=== PATIENT | female | born 1965 | race Caucasian/White ===

== ENCOUNTER 2016-10-16 08:43 | Inpatient (IN) | payer OTHER ==
[2016-10-16] MEDS ORDERED: MORPHINE SULFATE 2 MG/ML SYRINGE IVP STA (08:45)
[2016-10-16] MEDS ORDERED: ATORVASTATIN 80 MG TAB PO STA (08:46)
[2016-10-16] MEDS ORDERED: NITROGLYCERIN-D5W PMX 50 MG in DEXTROSE/WATER 1 250ML.BAG IV ONE (08:47)
[2016-10-16] MEDS ORDERED: HEPARIN SODIUM,PORCINE 5,000 UNIT/ML 1 ML VIAL IV ONE (08:53)
--- NOTE | 2016-10-16 08:53 | ED ---
General Adult HPI - General Stated complaint: STEMI Time Seen by Provider: 10/16/16 08:43 Source: RN notes reviewed - History of Present Illness Initial comments: This is a 51-year-old female who presents emergency Department with chest pain. Patient denies diabetes hypertension and high cholesterol. Patient does states she is a smoker. Patient denied any family history of heart disease. Patient started having chest pain or 5:00 this morning she stated radiated up into her jaw and short of breath also diaphoretic. Patient also is mildly nauseated. Patient called EMS when EMS arrived nitroglycerin was administered it did help her pain from a 10 to a 7 however she continues to have 7 or 8 out of 10 pain currently. Patient denies any recent fever chills or cough patient denies any headache patient denies numbness weakness. Patient denies abdominal pain patient denies nausea vomiting diarrhea. - Related Data Allergies Allergy/AdvReac Type Severity Reaction Status Date / Time naproxen [From Aleve] Allergy Unknown Verified 10/16/16 08:46 Review of Systems ROS Statement: Those systems with pertinent positive or pertinent negative responses have been documented in the HPI. ROS Other: All systems not noted in ROS Statement are negative. General Exam - General Exam Comments Initial Comments: GENERAL: Patient is well-developed and well-nourished. Patient is nontoxic and well- hydrated and is in moderate distress. ENT: Neck is soft and supple. No significant lymphadenopathy is noted. Oropharynx is clear. Moist mucous membranes. Neck has full range of motion without eliciting any pain. EYES: The sclera were anicteric and conjunctiva were pink and moist. Extraocular movements were intact and pupils were equal round and reactive to light. Eyelids were unremarkable. PULMONARY: Unlabored respirations. Good breath sounds bilaterally. No audible rales rhonchi or wheezing was noted. CARDIOVASCULAR: There is a regular rate and rhythm without any murmurs gallops or rubs. ABDOMEN: Soft and nontender with normal bowel sounds. SKIN: Skin is clear with no lesions or rashes and otherwise unremarkable. NEUROLOGIC: Patient is alert and oriented x3. Cranial nerves II through XII are grossly intact. Motor and sensory are also intact. Normal speech, volume and content. Symmetrical smile. MUSCULOSKELETAL: Normal extremities with adequate strength and full range of motion. LYMPHATICS: No significant lymphadenopathy is noted PSYCHIATRIC: Normal psychiatric evaluation. Normal interpersonal interactions appears functionally intact in deals appropriately with others. Course Vital Signs 10/16/16 08:46 Temperature 96.7 F L Pulse Rate 89 Respiratory 18 Rate Blood Pressure 123/69 O2 Sat by Pulse 99 Oximetry Medical Decision Making - Medical Decision Making EKG shows normal sinus rhythm at 96 bpm IL interval is 126 QRS is 124 QT interval 386 QTC is 487. Patient's EKG shows ST segment elevation in leads V2 through the 6 as well as in 1 and aVL. Patient appears to be having acute OK. I started the patient on heparin gave the patient Lipitor started the patient on nitroglycerin drip. Dr. Amos came down to see the patient in the emergency department the patient was taken to the catheterization lab. Critical Care Time Critical Care Time: Yes Total Critical Care Time: 30 Disposition Clinical Impression: ST elevation myocardial infarction (STEMI) Disposition: ADMITTED IP TO THIS HOSP Time of Disposition: 09:02
[2016-10-16 09:02] LABS: Basophils # (A) 0.1 k/uL (0-0.2); Basophils % (A) 1 %; CH 31.2; CHCM 33.2; Eosinophils # (A) 0.3 k/uL (0-0.7); Eosinophils % (A) 2 %; HCT 40.6 % (34.0-46.0); HDW 2.44; HGB 13.2 gm/dL (11.4-16.0); Luc # (Auto) 0.21; Luc % (Auto) 2; Lymphocytes # (A) 1.8 k/uL (1.0-4.8); Lymphocytes % (A) 13 %; MCH 30.7 pg (25.0-35.0); MCHC 32.5 g/dL (31.0-37.0); MCV 94.4 fL (80.0-100.0); Mean Platelet Volume 6.7; Monocytes # (A) 0.6 k/uL (0-1.0); Monocytes % (A) 5 %; Neutrophils # (A) 10.3 k/uL (1.3-7.7); Neutrophils % (A) 78 %; RDW 12.2 % (11.5-15.5); WBC 13.2 k/uL (3.8-10.6); WBC (Perox) 14.09
--- NOTE | 2016-10-16 09:03 | XR ---
EXAMINATION TYPE: XR chest 1V portable DATE OF EXAM: 10/16/2016 8:57 AM COMPARISON: NONE INDICATION: Pain TECHNIQUE: Single frontal view of the chest is obtained. FINDINGS: The heart size is normal. The pulmonary vasculature is normal. The lungs are clear. IMPRESSION: 1. No acute pulmonary process.
[2016-10-16 09:10] LABS: ALT 32 U/L (9-52); AST 28 U/L (14-36); Alkaline Phosphatase 83 U/L (38-126); Anion Gap 14 mmol/L; Blood Urea Nitrogen 14 mg/dL (7-17); Calcium 8.8 mg/dL (8.4-10.2); Carbon Dioxide 19 mmol/L (22-30); Chloride 110 mmol/L (98-107); Glucose 177 mg/dL (74-99); Non-African American GFR(MDRD) >60 (>60 ml/min/1.73 sqM); Potassium 3.8 mmol/L (3.5-5.1); Sodium 143 mmol/L (137-145); Total Bilirubin 0.6 mg/dL (0.2-1.3); Total Protein 6.6 g/dL (6.3-8.2)
[2016-10-16] MEDS ORDERED: SODIUM CHLORIDE 0.9% 500 ML IV ONE (09:15)
[2016-10-16] MEDS ORDERED: diphenhydrAMINE 50 MG/ML 1 ML VIAL ONE (09:17)
--- NOTE | 2016-10-16 09:18 | P.CRDCN ---
History of Present Illness Chief complaint: anterior wall mi History of present illness: Acute anterior wall [place] Right bundle-branch block Plan Coronary angiography and coronary stenting Medical treatment Please see full dictated consult, already done Past Medical History Past Medical History: No Reported History History of Any Multi-Drug Resistant Organisms: None Reported Past Surgical History: No Surgical Hx Reported Smoking Status: Current every day smoker Past Alcohol Use History: Occasional Past Drug Use History: None Reported Medications and Allergies Allergies Allergy/AdvReac Type Severity Reaction Status Date / Time naproxen [From Aleve] Allergy Unknown Verified 10/16/16 08:46 Physical Exam Vitals: Vital Signs Temp Pulse Resp BP Pulse Ox 10/16/16 09:03 89 18 124/72 99 10/16/16 08:46 96.7 F L 89 18 123/69 99 Intake and Output 10/15/16 10/16/16 10/16/16 22:59 06:59 14:59 Other: Weight 56.699 kg Patient Weight 10/17/16 06:59 Weight 56.699 kg Results 10/16/16 08:48 10/16/16 08:48 Cardiac Enzymes 10/16/16 Range/Units 08:48 AST 28 (14-36) U/L CBC 10/16/16 Range/Units 08:48 WBC 13.2 H (3.8-10.6) k/uL RBC 4.30 (3.80-5.40) m/uL Hgb 13.2 (11.4-16.0) gm/dL Hct 40.6 (34.0-46.0) % Plt Count 382 (150-450) k/uL Comprehensive Metabolic Panel 10/16/16 Range/Units 08:48 Sodium 143 (137-145) mmol/L Potassium 3.8 (3.5-5.1) mmol/L Chloride 110 H (98-107) mmol/L Carbon Dioxide 19 L (22-30) mmol/L BUN 14 (7-17) mg/dL Creatinine 0.69 (0.52-1.04) mg/dL Glucose 177 H (74-99) mg/dL Calcium 8.8 (8.4-10.2) mg/dL AST 28 (14-36) U/L ALT 32 (9-52) U/L Alkaline Phosphatase 83 (38-126) U/L Total Protein 6.6 (6.3-8.2) g/dL Albumin 4.1 (3.5-5.0) g/dL Current Medications Generic Name Dose Route Start Last Admin Trade Name Freq PRN Reason Stop Dose Admin Nitroglycerin/Dextrose 50 mg/ 250 mls @ 1.5 mls/hr 10/16/16 08:47 10/16/16 08 :53 IV Solution IV 10/17/16 08:46 5 mcg/min .Q24H ONE 1.5 mls/hr Protocol Administration 5 MCG/MIN Intake and Output 10/15/16 10/16/16 10/16/16 22:59 06:59 14:59 Other: Weight 56.699 kg Patient Weight 10/17/16 06:59 Weight 56.699 kg 10/16/16 08:48 10/16/16 08:48
[2016-10-16] MEDS ORDERED: LIDOCAINE 2% INJ 20 MG/ML SQ ONE (09:19)
[2016-10-16] MEDS ORDERED: diphenhydrAMINE 50 MG/ML 1 ML VIAL IVP ONE (09:20)
[2016-10-16] MEDS ORDERED: BIVALIRUDIN BOLUS 250 MG/50 ML IV ONE (09:26)
[2016-10-16] MEDS ORDERED: BIVALIRUDIN 250 MG in SODIUM CHLORIDE 0.9% 50 ML IV ONE (09:26)
[2016-10-16 09:27] LABS: Prothrombin Time 10.3 sec (9.0-12.0)
[2016-10-16] MEDS ORDERED: HYDROmorphone 2 MG/ML 1 ML SYRINGE ONE (09:27)
[2016-10-16 09:31] LABS: Partial Thromboplastin Time 21.8 sec (22.0-30.0)
[2016-10-16] MEDS ORDERED: PRASUGREL 10 MG TAB ONE (09:33)
[2016-10-16] MEDS ORDERED: HYDROmorphone 2 MG/ML 1 ML SYRINGE IVP ONE (09:33)
[2016-10-16] MEDS ORDERED: niCARdipine Syringe (1,000 mcg/10 mL) INTRACORON ONE ×2 (09:35→09:49)
[2016-10-16] MEDS: niCARdipine 25 MG/10 ML VIAL INTRACORON ONE ×2 (09:35→09:49)
[2016-10-16] MEDS: NITROGLYCERIN 1000MCG/10ML SYRINGE INTRACORON ONE ×3 (09:36→09:58)
[2016-10-16 09:38] LABS: Creatine Kinase MB 7.2 ng/mL (0.0-2.4); Troponin I 0.484 ng/mL (0.000-0.034)
[2016-10-16] MEDS ORDERED: PRASUGREL 10 MG TAB PO ONE (09:38)
--- NOTE | 2016-10-16 09:52 | CONS ---
DATE OF CONSULTATION: This is a 51-year-old female who woke up this morning, went to the bathroom and started complaining of midsternal chest discomfort and nonradiating. This was very uncomfortable. Finally she called EMS and she was brought in by EMS to [facility]. Her 12-lead ECG shows underlying right bundle branch block pattern with ST elevation in V1 through V6, and one in aVL consistent with an extensive anterior wall myocardial infarction. She was a bit nauseous in the morning, but no sweating. No dizziness, lightheadedness. She is short of breath. She was quite uncomfortable. She had severe pain. Yesterday, she had similar pain, but this was of shorter duration and it subsided spontaneously. PAST HISTORY: No history of diabetes, hypertension or dyslipidemia. SURGERIES: No surgeries. ALLERGIES: NAPROSYN. MEDICATIONS: At home, none. REVIEW OF SYSTEMS: No fever, chills, rigors. No cough or expectoration. No nausea, vomiting or diarrhea. No hematuria or dysuria. No strokes or seizures. No skin lesions or musculoskeletal complaints. On examination, her blood pressure was 124/72 mmHg, pulse rate in the 80s, afebrile. Head and neck examination normal. No JVD, thyromegaly, or carotid bruits. Heart sounds are soft but normal. No murmurs or gallops. Breath sounds are normal. No rhonchi. No crackles. Abdomen is soft, nontender. Extremities are warm. No edema IMPRESSION: 1. Acute anterior wall myocardial infarction. Pain began at 5:00 a.m. this morning. I saw her at about 9:00 in the morning in the emergency room. She had it just prior to that 2. Underlying right bundle branch block pattern. 3. History of smoking. 4. She denies any diabetes, hypertension or dyslipidemia and is not on any cardiac medications. She never had any cardiac issues in the past. 5. She had a similar episode yesterday, but the pain was short-lived and came back once again this morning at 5:00 a.m. PLAN: Aspirin, atorvastatin, nitroglycerin, IV heparin and transfer to the optical laboratory technician for coronary angiography. Beta blockers and LEIGHA inhibitors to follow along with antiplatelet agents.
[2016-10-16] MEDS ORDERED: IODIXANOL 320 MG/ML 100 ML INTRAARTER ONE (10:07)
[2016-10-16] MEDS ORDERED: ZOLPIDEM 5 MG TAB PO PRN (10:19)
[2016-10-16] MEDS ORDERED: RX INFO: IV CONTRAST WAS GIVEN 1 EACH MISC MISCELLANE PRN (10:19)
[2016-10-16] MEDS ORDERED: NITROGLYCERIN SL TABS 0.4 MG TAB SUBLINGUAL PRN (10:19)
[2016-10-16] MEDS ORDERED: MAG HYDROX/AL HYDROX/SIMETH 30 ML CUP PO PRN (10:19)
[2016-10-16] MEDS ORDERED: SODIUM CHLORIDE 0.9% 1,000 ML IV SCH (10:30)
[2016-10-16 10:44] LABS: Glucose,Whole Blood 135 mg/dL (75-99)
[2016-10-16] MEDS ORDERED: Potassium Replacement Protocol 1 EACH MISC MISCELLANE PRN (11:52)
[2016-10-16] MEDS ORDERED: POTASSIUM CHLORIDE ER 20 MEQ TAB.ER PO SCH (12:00)
--- NOTE | 2016-10-16 12:20 | P.HPIM ---
History of Present Illness H&P Date: 10/16/16 Chief Complaint: Chest pain This is a 51-year-old female with no significant past medical history of presented to the emergency room with chest pain and discomfort. Patient said that her pain started all of a sudden in the middle of her chest. She rates her pain as 6-7 out of 10 in severity. There was no radiation. It was associated with some nausea as well. Patient denies shortness of breath, diaphoresis, or dizziness. She presented to the emergency room and was found to have an acute ST elevation [place] in the precordial leads. She was evaluated by cardiology and was taken to the [facility]. She underwent successful stent placement to the LAD. She is feeling comfortable right now. She denies any chest pain at this point. She reported that she smokes approximately 5-6 cigarettes per day. Review of Systems Review of system: 14 points review of systems were obtained and were negative except to what were mentioned in the HPI. Past Medical History Past Medical History: No Reported History History of Any Multi-Drug Resistant Organisms: None Reported Past Surgical History: No Surgical Hx Reported Smoking Status: Current every day smoker Past Alcohol Use History: Occasional Past Drug Use History: None Reported Medications and Allergies Home Medications Medication Instructions Recorded Confirmed Type Ibuprofen/Pseudoephedrine HCl 1 tab PO Q8H PRN 10/16/16 10/16/16 History [Advil Cold & Sinus Caplet] Multivitamin/Iron/Folic Acid 1 each PO DAILY 10/16/16 10/16/16 History [Centrum Complete Multivit Tab] Allergies Allergy/AdvReac Type Severity Reaction Status Date / Time naproxen [From Aleve] Allergy Severe Rash/Hives Verified 10/16/16 12:06 Physical Exam Vitals: Vital Signs Temp Pulse Resp BP Pulse Ox 10/16/16 12:15 102 H 21 105/63 100 10/16/16 12:00 94 20 99/67 99 10/16/16 11:45 100 20 112/66 99 10/16/16 11:30 105 H 18 118/70 98 10/16/16 11:15 103 H 18 118/76 99 10/16/16 11:00 97.6 F 99 20 104/65 99 10/16/16 10:45 90 12 106/73 95 10/16/16 10:41 96 Intake and Output 01/10/16/16 10/16/16 22:59 06:59 14:59 Intake Total 320 Balance 320 Intake: IV 320 Other: Weight 56.6 kg Patient Weight 10/17/16 06:59 Weight 56.6 kg General: The patient is awake and alert, in no distress, and does not appear acutely ill. Eye: extra-ocular movements are intact; there is normal conjunctiva bilaterally. . Neck: The neck is supple, there is no tenderness or JVD. Cardiovascular: Normal S1-S2, no S3-S4, no murmurs. Respiratory: Lungs clear to auscultation bilaterally with no wheezes rhonchi or rales. Gastrointestinal: Abdomen is soft, nontender, nondistended, with no organomegaly. . Musculoskeletal: Normal ROM, no tenderness, There is no pedal edema. Neurological: There are no obvious motor or sensory deficits. Speech is normal. Skin: Skin is warm and dry and no rashes or lesions are noted. Results CBC & Chem 7: 10/16/16 08:48 10/16/16 08:48 Labs: Abnormal Lab Results - Last 24 Hours (Table) 10/16/16 Range/Units 10:41 POC Glucose (mg/dL) 135 H (75-99) mg/dL Assessment and Plan Plan: 1. Acute ST elevation [place]: Status post successful stent placement to LAD. Continue dual antiplatelets. Medical management. Cardiology following closely. Appreciate recommendations. 2. Tobacco abuse: counseled to quit. Discussed different strategies. Time spent approximately 5 minutes. Patient is wanting to quit. 3. Leukocytosis: Most likely reactive. We'll repeat CBC in the morning. No evidence of ongoing infection. Today, I reviewed her lab work results and medication list. Continue current regimen. Check fasting lipid profile. Repeat lab work in the morning. Continue ICU care and telemetry monitoring. Patient may be transferred outside the ICU when cleared by cardiology. We will follow up in the morning.
[2016-10-16 12:37] LABS: Cholesterol 143 mg/dL (<200); HDL Cholesterol 43 mg/dL (40-60); Triglycerides 61 mg/dL (<150)
[2016-10-16] MEDS: ONDANSETRON 4 MG/2 ML VIAL IVP PRN ×2 (15:33→23:29)
[2016-10-16] MEDS: ACETAMINOPHEN TAB 500 MG TAB PO PRN ×2 (18:16→23:59)
[2016-10-16] MEDS: METOPROLOL TARTRATE 25 MG TAB PO SCH (20:12)
[2016-10-16] MEDS: ATORVASTATIN 80 MG TAB PO SCH (20:13)
--- NOTE | 2016-10-16 21:24 | CC ---
DATE OF SERVICE: October 16, 2016 PERFORMING PHYSICIAN: Adebayo Juarez M.D., bottoming machine operator. PROCEDURE PERFORMED: 1. Selective left and right coronary angiogram. 2. Successful stenting of the proximal left anterior descending artery using 2.75 x 18 and 2.75 x 12 mm Xience SHWETA with a good angiographic results. 3. Left heart catheterization. 4. Left ventriculography. INDICATION: This is a pleasant 51-year-old female patient who presented to the hospital by ambulance who was brought to the hospital ambulance with acute anterior ST elevation myocardial infarction. She was seen and evaluated by Dr. Colindres who recommended an emergent heart catheterization. Approach: Right common femoral artery. COMPLICATIONS: None. Level of sedation: Moderate. PROCEDURE DESCRIPTION: After obtaining informed consent, the patient was rushed emergently to the cardiac kiln labourer. The right groin was prepped in the usual sterile fashion. Local analgesia was achieved by injecting 2% Xylocaine subcutaneously into the right groin. Right common femoral artery was cannulated using an 18-gauge Cook needle. The wire passed easily, then I placed 6 Afghan sheath in the right common femoral artery. Subsequently, I did selective left coronary angiogram and after that, I did intervene on the LAD. After that, I did selective right coronary angiogram, then left heart catheterization and LV gram using a 6 Afghan pigtail catheter. The selective left coronary angiogram was performed using JL4 guiding catheter. The right coronary angiogram was performed using JR4 diagnostic catheter. Overall the procedure was completed without any complication. SELECTIVE CORONARY ANGIOGRAM: 1. The left main is angiographically normal and bifurcates into the left circumflex and left anterior descending artery. 2. The left circumflex is a large-caliber vessel and nondominant vessel. The proximal circumflex appeared to be normal and gives rises into the first OM branch, which is a large-caliber vessel bifurcates into 2 separate branches and both are angiographically normally. The mid left circumflex is normal and the left circumflex distally gives rises into the second OM branch, which appeared to be normal and after that, the circumflex continues as a small-caliber vessel in the AV groove. 3. Left anterior descending artery is 100% occluded in the proximal portion. 4. The right coronary artery is a moderate to large-caliber vessel and it is a dominant vessel. The right coronary artery is angiographically normal. HEMODYNAMICS: The left ventricular end-diastolic pressure was 13 mmHg, and no gradient was identified across the aortic valve. Left ventriculography was performed in the BARNES projection and using a power injection. The left ventricular systolic function seems to be impaired with an ejection fraction probably between 25% and 30% with anterior and apical akinesia hypokinesia. PCI of the LAD: Anticoagulation was initiated using Angiomax. Subsequently took JL4 guide and the left main was engaged. Whisper wire was used to wire the left anterior descending artery, and to cross the total occlusion in the LAD. Subsequently, I did PTCA ballooning using 2.0 x 12 mm balloon which was inflated under 12 atmospheres for 20 seconds. After that, I deployed 2.75 x 18 mm Xience SHWETA, where the stent was positioned under fluoroscopy guidance, then it was deployed under 14 atmospheres for 20 seconds. The following angiogram showed that the lesion just proximal to the stent looks worse and also looks more hazy. So I decided to cover that with a stent, so I took 2.75 x 12 mm another Xience SHWETA, where the second stent was deployed under fluoroscopy guidance with about 2 mm overlap between the 2 stents. The second stent was deployed under 12 atmospheres for 20 seconds. The following angiogram showed good angiographic results. Without perforation and without dissection. I did also balloon the area of overlap between the 2 stents. CONCLUSION: 1. Acute anterior ST elevation myocardial infarction. 2. 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 3. Successful stenting of the proximal left anterior descending artery using 2.75 x 18 and 2.75 x 12 mm Xience SHWETA with a good angiographic results. 4. There is no other residual coronary artery disease in the left circumflex for the right coronary artery. 5. Severely impaired LV function with an ejection fraction of 25% and 30% with anterior and apical hypokinesia. POSTPROCEDURE MANAGEMENT: 1. Dual antiplatelet therapy. 2. Risk factor modification. 3. Smoking cessation was also discussed with the patient. 4. Obtain an echocardiogram with Doppler to assess the LV function. 5. Follow up with the patient.
--- NOTE | 2016-10-16 21:49 | LTR ---
October 16, 2016 RE: Koki Croft Dear Dr. Melo: Ms. Koki Croft was brought to [facility] with chest discomfort and turned to be an acute anterior ST elevation myocardial infarction. The patient was seen and evaluated by my associate Dr. Colindres who recommended an emergent heart catheterization. I did an emergent heart catheterization on the patient and that showed acute total occlusion of the proximal left anterior descending artery, which was opened and stented with a good angiographic result and without any complication. Thank you for allowing me to participate in her care. Please do not hesitate to call if you have any question or concerns. Sincerely, CHAR RANDALL MD
[2016-10-17] MEDS ORDERED: HYDROmorphone 1 MG/ML 1 ML SYRINGE IM STA (02:33)
[2016-10-17] MEDS ORDERED: HYDROmorphone 1 MG/ML 1 ML SYRINGE IVP STA (02:33)
[2016-10-17 05:09] LABS: Basophils % (A) 0 %; CH 31.5; CHCM 33.7; Eosinophils % (A) 0 %; HCT 39.1 % (34.0-46.0); HDW 2.47; Luc % (Auto) 1; Lymphocytes % (A) 5 %; MCH 31.3 pg (25.0-35.0); MCHC 33.3 g/dL (31.0-37.0); MCV 93.9 fL (80.0-100.0); Mean Platelet Volume 7.3; Monocytes # (A) 1.4 k/uL (0-1.0); Monocytes % (A) 8 %; Neutrophils # (A) 15.5 k/uL (1.3-7.7); Neutrophils % (A) 86 %; RBC 4.17 m/uL (3.80-5.40); RDW 12.6 % (11.5-15.5); WBC 18.1 k/uL (3.8-10.6); WBC (Perox) 18.83
[2016-10-17 05:20] LABS: Anion Gap 10 mmol/L; Blood Urea Nitrogen 14 mg/dL (7-17); Calcium 9.1 mg/dL (8.4-10.2); Carbon Dioxide 22 mmol/L (22-30); Chloride 109 mmol/L (98-107); Glucose 135 mg/dL (74-99); Non-African American GFR(MDRD) >60 (>60 ml/min/1.73 sqM); Phosphorous 3.5 mg/dL (2.5-4.5); Potassium 4.4 mmol/L (3.5-5.1); Sodium 141 mmol/L (137-145)
[2016-10-17] MEDS ORDERED: HEPARIN SODIUM,PORCINE 5,000 UNIT/ML 1 ML VIAL IV ONE (08:29)
[2016-10-17] MEDS: PRASUGREL 10 MG TAB PO SCH (08:40)
[2016-10-17] MEDS: ASPIRIN 325 MG TAB PO SCH (08:40)
[2016-10-17] MEDS: METOPROLOL TARTRATE 25 MG TAB PO SCH ×2 (08:40→20:10)
[2016-10-17 09:04] LABS: INR 1.1 (<1.1); Partial Thromboplastin Time 22.1 sec (22.0-30.0); Prothrombin Time 10.7 sec (9.0-12.0)
--- NOTE | 2016-10-17 09:14 | PN ---
Koki Wilde is a 51-year-old female who presented with an anterior wall AL. She underwent successful stenting of the LAD with a Xience stent. This was a totally occluded LAD secondary to plaque rupture and thrombus formation. There was no other disease in the left circumflex or the right coronary artery and LV function is severely impaired at 25 to 30% with anterior and apical hypokinesis. She is doing well from a cardiac standpoint, she has a vague discomfort in the upper chest which is pleuritic in nature and nonradiating. She denies any dizziness, lightheadedness. No palpitations. VITAL SIGNS: Her blood pressure is between 95 to 105 systolic. Pulse rate is in the 90s to 100s. Sinus rhythm and mild sinus tachycardia. Respirations are normal. Heart sounds S1, S2. S1 is normal. S2 is normal. There is a soft gallop. Breath sounds are normal. No rhonchi. No crackles. ABDOMEN: Soft, nontender. EXTREMITIES: Warm. No edema. A 2-D echocardiogram shows severe LV dysfunction, ejection fraction less than 20%. Very large anterior apical and inferior wall akinesis with likely neurothrombus. Suggest: Start IV heparin, start oral Coumadin 5 mg p.o. daily. Daily PT/INR and I will slowly maximize LEIGHA inhibitors. ( ) is also being added. I anticipate that she will be here through this week.
[2016-10-17] MEDS: SPIRONOLACTONE 25 MG TAB PO SCH (09:29)
[2016-10-17] MEDS: HEPARIN SODIUM,PORCINE/D5W PMX 25,000 UNIT in DEXTROSE/WATER 1 500ML.BAG IV SCH (09:29)
[2016-10-17] MEDS: LISINOPRIL 10 MG TAB PO SCH (09:46)
--- NOTE | 2016-10-17 10:27 | ECHOF ---
Referral Reason:stemi MEASUREMENTS -------- HEIGHT: 152.4 cm WEIGHT: 56.3 kg BP: 91/67 RVIDd: 2.1 cm (< 3.3) IVSd: 1.0 cm (0.6 - 1.1) LVIDd: 3.8 cm (3.9 - 5.3) LVPWd: 1.0 cm (0.6 - 1.1) IVSs: 1.4 cm LVIDs: 2.9 cm LVPWs: 1.2 cm LA Diam: 2.7 cm (2.7 - 3.8) LAESV Index (A-L): 18.87 ml/m Ao Diam: 2.8 cm (2.0 - 3.7) AV Cusp: 1.7 cm (1.5 - 2.6) MV EXCURSION: 18.612 mm (> 18.000) MV EF SLOPE: 150 mm/s (70 - 150) EPSS: 0.5 cm MV E Shahid: 0.73 m/s MV DecT: 152 ms MV A Shahid: 0.77 m/s MV E/A Ratio: 0.95 FINDINGS -------- Sinus rhythm. This was a technically adequate study. The left ventricular size is normal. Left ventricular wall thickness is normal. Overall left ventricular systolic function is severely impaired with, an EF between 20 - 25 %. Mid anterior LV wall motion is hypokinetic. Mid lateral LV wall motion is hypokinetic. Mid inferior LV wall motion is hypokinetic. Mid anteroseptal LV wall motion is hypokinetic. Apical anterior LV wall motion is hypokinetic. Apical lateral LV wall motion is hypokinetic. Apical inferior LV wall motion is hypokinetic. Apical septum LV wall motion is hypokinetic. Only basal inferior wall is nathan. The right ventricle is normal in size and function. The left atrium is normal in size. Normal LA size by volume 22+/-6 ml/m2. The right atrium is normal in size. 1.5mg of Definity was utilized for enhancement of images The aortic valve is trileaflet and appears structurally normal. There is trace mitral regurgitation. The tricuspid valve appears structurally normal. No regurgitation noted The pulmonic valve was not well visualized. Mural thrombus in LV apex The aortic root size is normal. There is no pericardial effusion. CONCLUSIONS -------- 1. Sinus rhythm. 2. Apical anterior LV wall motion is hypokinetic. 3. Apical lateral LV wall motion is hypokinetic. 4. Apical inferior LV wall motion is hypokinetic. 5. Apical septum LV wall motion is hypokinetic. 6. Only basal inferior wall is nathan. 7. The right ventricle is normal in size and function. 8. Normal LA size by volume 22+/-6 ml/m2. 9. The right atrium is normal in size. 10. 1.5mg of Definity was utilized for enhancement of images 11. The aortic valve is trileaflet and appears structurally normal. 12. This was a technically adequate study. 13. There is trace mitral regurgitation. 14. The tricuspid valve appears structurally normal. 15. The pulmonic valve was not well visualized. 16. Mural thrombus in LV apex 17. The aortic root size is normal. 18. There is no pericardial effusion. 19. The left ventricular size is normal. 20. Left ventricular wall thickness is normal. 21. Overall left ventricular systolic function is severely impaired with, an EF between 20 - 25 %. 22. Mid anterior LV wall motion is hypokinetic. 23. Mid lateral LV wall motion is hypokinetic. 24. Mid inferior LV wall motion is hypokinetic. 25. Mid anteroseptal LV wall motion is hypokinetic. DRUG ABUSE PROGRAM COORDINATOR: Alicia Glaser RDCS
[2016-10-17 12:28] LABS: Hemoglobin A1C 5.1 % (4.2-6.1)
--- NOTE | 2016-10-17 12:53 | P.PN ---
Subjective Patient is doing fairly well today. She denies any chest pain or shortness of breath. Objective - Vital Signs Vital signs: Vital Signs Temp 98.2 F 10/17/16 11:15 Pulse 109 H 10/17/16 10:00 Resp 18 10/17/16 11:15 BP 114/73 10/17/16 11:15 Pulse Ox 98 10/17/16 11:15 Intake & Output 10/16/16 10/17/16 10/17/16 18:59 06:59 18:59 Intake Total 1045 275 Output Total 200 300 0 Balance 845 -25 0 Weight 56.6 kg 56.6 kg Intake: IV 320 Intake, IV Titration 475 Amount Sodium Chloride 0.9% 1, 475 000 ml @ 100 mls/hr IV . Q10H RIA Rx#:[id number] Oral 250 275 Output: Urine 300 0 Emesis 200 Other: Voiding Method Toilet # Voids 1 1 - Exam General: The patient is awake and alert, in no distress Eye: there is normal conjunctiva bilaterally. Neck: The neck is supple, there is no JVD. Cardiovascular: Normal S1-S2, no S3-S4, no murmurs. Respiratory: Lungs clear to auscultation bilaterally Gastrointestinal: Abdomen is soft, nontender Musculoskeletal: There is no pedal edema. Neurological:. Speech is normal. Skin: Skin is warm and dry - Labs CBC & Chem 7: 10/17/16 04:40 10/17/16 04:40 Labs: Abnormal Lab Results - Last 24 Hours (Table) 10/17/16 10/17/16 Range/Units 04:40 04:40 WBC 18.1 H (3.8-10.6) k/uL Neutrophils # 15.5 H (1.3-7.7) k/uL Monocytes # 1.4 H (0-1.0) k/uL Chloride 109 H (98-107) mmol/L Glucose 135 H (74-99) mg/dL Assessment and Plan Plan: 1. Acute ST elevation [place]: Status post successful stent placement to LAD. Continue dual antiplatelets. Medical management. Cardiology following closely. Appreciate recommendations. 2. Ischemic cardiomyopathy with systolic heart failure and ejection fraction of 20%: Now compensated. Continue optimal medical management. 3. Intracardiac thrombus noted on echocardiogram of the heart. Currently on anticoagulation with heparin and bridging with Coumadin. Cardiology followed closely. May consider ROWDY 4. Tobacco abuse: counseled to quit during this admission 3. Leukocytosis: Most likely reactive. We'll repeat CBC in the morning. No evidence of ongoing infection. Today, I reviewed her lab work results and medication list. Continue current regimen. Repeat lab work in the morning. We will follow up in the morning.
[2016-10-17] MEDS: WARFARIN 5 MG TAB PO SCH (18:05)
[2016-10-17] MEDS: ATORVASTATIN 80 MG TAB PO SCH (20:10)
[2016-10-18] MEDS: ACETAMINOPHEN TAB 500 MG TAB PO PRN ×2 (00:10→23:05)
[2016-10-18] MEDS: HEPARIN SODIUM,PORCINE 5,000 UNIT/ML 1 ML VIAL IV PRN (04:05)
[2016-10-18 05:20] LABS: Anion Gap 6 mmol/L; Blood Urea Nitrogen 14 mg/dL (7-17); Calcium 8.5 mg/dL (8.4-10.2); Carbon Dioxide 27 mmol/L (22-30); Chloride 110 mmol/L (98-107); Glucose 97 mg/dL (74-99); Non-African American GFR(MDRD) >60 (>60 ml/min/1.73 sqM); Phosphorous 2.1 mg/dL (2.5-4.5); Sodium 143 mmol/L (137-145)
[2016-10-18 05:23] LABS: Basophils % (A) 0 %; CH 31.3; CHCM 33.3; Eosinophils # (A) 0.1 k/uL (0-0.7); Eosinophils % (A) 1 %; HCT 35.3 % (34.0-46.0); HDW 2.39; HGB 11.5 gm/dL (11.4-16.0); Luc # (Auto) 0.14; Luc % (Auto) 2; Lymphocytes % (A) 22 %; MCH 30.8 pg (25.0-35.0); MCHC 32.6 g/dL (31.0-37.0); MCV 94.5 fL (80.0-100.0); Mean Platelet Volume 6.7; Monocytes # (A) 0.6 k/uL (0-1.0); Monocytes % (A) 7 %; Neutrophils # (A) 6.2 k/uL (1.3-7.7); Neutrophils % (A) 69 %; RBC 3.73 m/uL (3.80-5.40); RDW 12.3 % (11.5-15.5); WBC 9.1 k/uL (3.8-10.6); WBC (Perox) 9.71
[2016-10-18] MEDS: PRASUGREL 10 MG TAB PO SCH (08:18)
[2016-10-18] MEDS: ASPIRIN 325 MG TAB PO SCH (08:18)
[2016-10-18] MEDS: METOPROLOL TARTRATE 25 MG TAB PO SCH ×2 (09:21→21:08)
[2016-10-18 09:22] VITALS: BMI 24.5
[2016-10-18 10:43] LABS: INR 1.1 (<1.1); Partial Thromboplastin Time 62.4 sec (22.0-30.0); Prothrombin Time 11.3 sec (9.0-12.0)
[2016-10-18] MEDS: SPIRONOLACTONE 25 MG TAB PO SCH ×2 (10:45→21:53)
--- NOTE | 2016-10-18 12:01 | P.PN ---
Subjective Patient is doing fairly well today. She denies any chest pain or shortness of breath. Objective - Vital Signs Vital signs: Vital Signs Temp 97.5 F L 10/18/16 08:13 Pulse 102 H 10/18/16 08:13 Resp 22 10/18/16 08:13 BP 90/62 10/18/16 10:00 Pulse Ox 98 10/18/16 08:13 Intake & Output 10/17/16 10/18/16 10/18/16 18:59 06:59 18:59 Intake Total 277.241 969.234 120 Output Total 0 0 200 Balance 277.241 969.234 -80 Weight 57.1 kg 57.1 kg Intake: IV 160 200 120 0.9 160 200 120 Intake, IV Titration 117.241 169.234 Amount Heparin Sodium,Porcine/ 117.241 169.234 D5w Pmx 25,000 unit In Dextrose/Water 1 500ml. bag @ 12 UNITS/KG/HR 13. 58 mls/hr IV .Q24H RIA Rx #:[id number] Oral 600 Output: Urine 0 0 200 Other: Voiding Method Toilet Toilet # Voids 1 1 # Bowel Movements 1 - Exam General: The patient is awake and alert, in no distress Eye: there is normal conjunctiva bilaterally. Neck: The neck is supple, there is no JVD. Cardiovascular: Normal S1-S2, no S3-S4, no murmurs. Respiratory: Lungs clear to auscultation bilaterally Gastrointestinal: Abdomen is soft, nontender Musculoskeletal: There is no pedal edema. Neurological:. Speech is normal. Skin: Skin is warm and dry - Labs CBC & Chem 7: 10/18/16 04:54 10/18/16 04:54 Labs: Abnormal Lab Results - Last 24 Hours (Table) 10/17/16 10/18/16 10/18/16 Range/Units 16:17 00:14 04:54 RBC (3.80-5.40) m/uL APTT 36.1 H 35.4 H (22.0-30.0) sec Chloride 110 H (98-107) mmol/L Phosphorus 2.1 L (2.5-4.5) mg/dL 10/18/16 10/18/16 Range/Units 04:54 09:35 RBC 3.73 L (3.80-5.40) m/uL APTT 62.4 H (22.0-30.0) sec Chloride (98-107) mmol/L Phosphorus (2.5-4.5) mg/dL Assessment and Plan Plan: 1. Acute ST elevation [place]: Status post successful stent placement to LAD. Continue dual antiplatelets. Medical management. Cardiology following closely. Appreciate recommendations. 2. Ischemic cardiomyopathy with systolic heart failure and ejection fraction of 20%: Now compensated. Continue optimal medical management. 3. Intracardiac thrombus noted on echocardiogram of the heart. Currently on anticoagulation with heparin and bridging with Coumadin. Cardiology followed closely. May consider ROWDY 4. Tobacco abuse: counseled to quit during this admission 3. Leukocytosis: Now resolved. Most likely reactive. We'll repeat CBC in the morning. No evidence of ongoing infection. Today, I reviewed her lab work results and medication list. Continue current regimen. Repeat lab work in the morning. We will follow up in the morning.
[2016-10-18] MEDS: HEPARIN SODIUM,PORCINE/D5W PMX 25,000 UNIT in DEXTROSE/WATER 1 500ML.BAG IV SCH (14:43)
[2016-10-18] MEDS: LISINOPRIL 10 MG TAB PO SCH ×2 (14:50→21:52)
[2016-10-18] MEDS: ATORVASTATIN 80 MG TAB PO SCH (21:08)
[2016-10-18] MEDS: WARFARIN 5 MG TAB PO SCH (21:09)
--- NOTE | 2016-10-18 21:11 | PN ---
Koki Croft is doing well. She is sitting up comfortably in bed. No chest discomfort. No shortness of breath. No orthopnea, PND. Her blood pressure is around 90 mmHg, but she is completely asymptomatic. She is not dizzy or lightheaded. She does not have any chest discomfort. No JVD. No thyromegaly. Breath sounds are normal. Heart sounds: There is a soft gallop noted. Abdomen is soft, nontender. Extremities are warm. No edema. IMPRESSION: 1. Anterior wall myocardial infarction. 2. Severe left ventricular dysfunction, ejection fraction less than 5% to 10%. 3. Likely intramural thrombus in the left ventricle, currently on IV heparin and started her on Coumadin 5 mg p.o. daily. 4. History of smoking. SUGGEST: Continue LEIGHA inhibitors, beta blockers and spironolactone. She is completely asymptomatic and tolerating this blood pressure. I will ambulate her in the hallways and prior to discharge, a LifeVest will be ordered for her. She will be discharged only after her INR is greater than 2.
[2016-10-19 04:16] LABS: Basophils # (A) 0.1 k/uL (0-0.2); Basophils % (A) 1 %; CH 31.5; CHCM 34.2; Eosinophils # (A) 0.2 k/uL (0-0.7); Eosinophils % (A) 2 %; HCT 35.9 % (34.0-46.0); HDW 2.48; HGB 11.9 gm/dL (11.4-16.0); Luc # (Auto) 0.13; Luc % (Auto) 2; Lymphocytes # (A) 1.9 k/uL (1.0-4.8); Lymphocytes % (A) 23 %; MCH 30.7 pg (25.0-35.0); MCHC 33.2 g/dL (31.0-37.0); MCV 92.6 fL (80.0-100.0); Mean Platelet Volume 7.8; Monocytes # (A) 0.7 k/uL (0-1.0); Monocytes % (A) 8 %; Neutrophils # (A) 5.6 k/uL (1.3-7.7); Neutrophils % (A) 65 %; RBC 3.87 m/uL (3.80-5.40); RDW 12.3 % (11.5-15.5); WBC 8.6 k/uL (3.8-10.6); WBC (Perox) 8.98
[2016-10-19 04:26] LABS: INR 1.1 (<1.1); Partial Thromboplastin Time 43.3 sec (22.0-30.0); Prothrombin Time 11.1 sec (9.0-12.0)
[2016-10-19 04:55] LABS: Anion Gap 8 mmol/L; Blood Urea Nitrogen 13 mg/dL (7-17); Calcium 8.8 mg/dL (8.4-10.2); Carbon Dioxide 25 mmol/L (22-30); Chloride 111 mmol/L (98-107); Glucose 92 mg/dL (74-99); Magnesium 1.9 mg/dL (1.6-2.3); Non-African American GFR(MDRD) >60 (>60 ml/min/1.73 sqM); Phosphorous 3.4 mg/dL (2.5-4.5); Potassium 4.3 mmol/L (3.5-5.1); Sodium 144 mmol/L (137-145)
[2016-10-19] MEDS: HEPARIN SODIUM,PORCINE 5,000 UNIT/ML 1 ML VIAL IV PRN (05:08)
[2016-10-19] MEDS ORDERED: Magnesium Replacement Protocol 1 EACH MISC MISCELLANE PRN (05:11)
[2016-10-19] MEDS: MAGNESIUM SULFATE-D5W PMX 1 GM in DEXTROSE/WATER 1 100ML.BAG IVPB SCH ×2 (05:59→07:00)
[2016-10-19] MEDS: METOPROLOL TARTRATE 25 MG TAB PO SCH ×2 (08:48→20:00)
[2016-10-19] MEDS: PRASUGREL 10 MG TAB PO SCH (08:48)
[2016-10-19] MEDS: ASPIRIN 325 MG TAB PO SCH (08:48)
--- NOTE | 2016-10-19 11:35 | US ---
EXAMINATION TYPE: US extremity nonvasc mass LT DATE OF EXAM: 10/19/2016 11:25 AM COMPARISON: NONE CLINICAL HISTORY: questionable hematoma . Bruise seen today on patients left thigh, no known injury, patient is on thinners. Findings: Soft tissue inflammation seen with probable resolving hematoma. No obvious fluid collectio n seen. IMPRESSION: As above
[2016-10-19] MEDS: HEPARIN SODIUM,PORCINE/D5W PMX 25,000 UNIT in DEXTROSE/WATER 1 500ML.BAG IV SCH (11:39)
[2016-10-19] MEDS: SPIRONOLACTONE 25 MG TAB PO SCH (11:40)
--- NOTE | 2016-10-19 11:52 | P.PN ---
Subjective Patient is doing well today. She noticed a lump with a bruise on her left eye this morning. She does not recall any trauma or fall Objective - Vital Signs Vital signs: Vital Signs Temp 98.2 F 10/19/16 08:41 Pulse 83 10/19/16 08:41 Resp 15 10/19/16 08:41 BP 93/50 10/19/16 08:41 Pulse Ox 97 10/19/16 08:41 Intake & Output 10/18/16 10/19/16 10/19/16 18:59 06:59 18:59 Intake Total 453.525 493.668 227.537 Output Total 200 Balance 253.525 493.668 227.537 Weight 57.1 kg 52.7 kg Intake: IV 240 200 80 0.9 240 200 80 Intake, IV Titration 213.525 293.668 147.537 Amount Heparin Sodium,Porcine/ 213.525 293.668 147.537 D5w Pmx 25,000 unit In Dextrose/Water 1 500ml. bag @ 12 UNITS/KG/HR 13. 58 mls/hr IV .Q24H RIA Rx #:[id number] Output: Urine 200 Other: Voiding Method Toilet Toilet Toilet # Voids 1 1 # Bowel Movements 1 - Exam General: The patient is awake and alert, in no distress Eye: there is normal conjunctiva bilaterally. Neck: The neck is supple, there is no JVD. Cardiovascular: Normal S1-S2, no S3-S4, no murmurs. Respiratory: Lungs clear to auscultation bilaterally Gastrointestinal: Abdomen is soft, nontender Musculoskeletal: There is no pedal edema. Neurological:. Speech is normal. Skin: Skin is warm and dry There is an area of bruising below the mid thigh on the left with a mass approximately 3-4 cm suspected for hematoma that is nontender. - Labs CBC & Chem 7: 10/19/16 04:02 10/19/16 04:02 Labs: Abnormal Lab Results - Last 24 Hours (Table) 10/19/16 10/19/16 10/19/16 Range/Units 04:02 04:02 10:58 APTT 43.3 H 69.1 H (22.0-30.0) sec Chloride 111 H (98-107) mmol/L Assessment and Plan Plan: 1. Acute ST elevation [place]: Status post successful stent placement to LAD. Continue dual antiplatelets. Medical management. Cardiology following closely. Appreciate recommendations. 2. Ischemic cardiomyopathy with systolic heart failure and ejection fraction of 20%: Now compensated. Continue optimal medical management. 3. Intracardiac thrombus noted on echocardiogram of the heart. Currently on anticoagulation with heparin and bridging with Coumadin. Cardiology followed closely. May consider ROWDY 4. Tobacco abuse: counseled to quit during this admission 5. Left thigh hematoma: of unclear etiology. Patient had her heart catheterization through the right groin. I would obtain a soft tissue ultrasound for further evaluation. Area will be marked for monitoring. We will continue anticoagulation for now and monitor closely. Today, I reviewed her lab work results and medication list. increase Coumadin dose to 10 mg for one time tonight and then resume 5. Repeat lab work in the morning. We will follow up in the morning.
[2016-10-19] MEDS: LISINOPRIL 10 MG TAB PO SCH (15:07)
[2016-10-19] MEDS ORDERED: WARFARIN 10 MG TAB PO ONE (18:00)
[2016-10-19] MEDS ORDERED: WARFARIN 5 MG TAB PO ONE (18:00)
[2016-10-19] MEDS: ATORVASTATIN 80 MG TAB PO SCH (20:01)
--- NOTE | 2016-10-19 20:38 | PN ---
Koki Wilde is a 51-year-old female who had an anterior wall [place]; however, she has severe LV dysfunction which is out of proportion to the degree of cardiac injury that occurred during the setting. Her blood pressure is in the 90s, but she is asymptomatic. She has no chest discomfort, dizziness, lightheadedness, weakness. She is sitting comfortably in a chair and she has been walking around in the room. Electrolytes are normal. Blood pressure is in the 90s. Head and neck examination is normal. Heart sounds are normal. No S3 gallop today. Breath sounds are normal. No rhonchi. No crackles. Extremities are warm. No edema. IMPRESSION: 1. Severe cardiomyopathy, mostly ischemic in nature. 2. Anterior wall myocardial infarction. 3. History of smoking. 4. Asymptomatic heart failure with an S3 gallop, now resolving. There is no S3 gallop today. SUGGEST: Continue current medication without any changes. I would not hold her medications, but I would switch to metoprolol succinate 25 mg p.o. daily. I will also order a Life Vest for her for the next 3 to 6 months while waiting for her LV function to recover.
[2016-10-20 05:40] LABS: Basophils # (A) 0.1 k/uL (0-0.2); Basophils % (A) 1 %; CH 31.6; CHCM 33.5; Eosinophils # (A) 0.3 k/uL (0-0.7); Eosinophils % (A) 3 %; HCT 36.3 % (34.0-46.0); HDW 2.48; HGB 11.9 gm/dL (11.4-16.0); Luc # (Auto) 0.11; Luc % (Auto) 1; Lymphocytes # (A) 1.4 k/uL (1.0-4.8); Lymphocytes % (A) 18 %; MCH 30.9 pg (25.0-35.0); MCHC 32.7 g/dL (31.0-37.0); MCV 94.6 fL (80.0-100.0); Mean Platelet Volume 7.7; Monocytes # (A) 0.6 k/uL (0-1.0); Monocytes % (A) 7 %; Neutrophils # (A) 5.5 k/uL (1.3-7.7); Neutrophils % (A) 69 %; RBC 3.84 m/uL (3.80-5.40); RDW 12.4 % (11.5-15.5); WBC (Perox) 8.56
[2016-10-20 05:55] LABS: Partial Thromboplastin Time 48.1 sec (22.0-30.0); Prothrombin Time 19.5 sec (9.0-12.0)
[2016-10-20 06:32] LABS: Anion Gap 7 mmol/L; Blood Urea Nitrogen 13 mg/dL (7-17); Calcium 8.6 mg/dL (8.4-10.2); Carbon Dioxide 25 mmol/L (22-30); Chloride 110 mmol/L (98-107); Glucose 97 mg/dL (74-99); Non-African American GFR(MDRD) >60 (>60 ml/min/1.73 sqM); Phosphorous 4.4 mg/dL (2.5-4.5); Potassium 4.5 mmol/L (3.5-5.1); Sodium 142 mmol/L (137-145)
[2016-10-20] MEDS: HEPARIN SODIUM,PORCINE/D5W PMX 25,000 UNIT in DEXTROSE/WATER 1 500ML.BAG IV SCH (08:11)
[2016-10-20] MEDS: ASPIRIN 325 MG TAB PO SCH (08:12)
[2016-10-20] MEDS: PRASUGREL 10 MG TAB PO SCH (08:12)
[2016-10-20] MEDS ORDERED: ENOXAPARIN 40 MG/0.4 ML SYRINGE SQ STA (10:31)
[2016-10-20] MEDS: METOPROLOL SUCCINATE (ER) 25 MG TAB.ER.24H PO SCH (10:34)
[2016-10-20] MEDS: SPIRONOLACTONE 25 MG TAB PO SCH (11:03)
--- NOTE | 2016-10-20 13:23 | P.PN ---
Subjective Principal diagnosis: Acute ST elevation myocardial infarction Patient is a 51-year-old female admitted to [facility] with chest pain she had evidence of acute ST elevation myocardial infarction he underwent cardiac catheterization with stent placement to the LAD. During this admission patient had evidence of ischemic cardiomyopathy with slowed ejection fraction of 20%, she also has evidence of intracardiac thrombus. She is scheduled to have life vest placed and then possible discharge to home and follow-up with cardiology. Objective - Vital Signs Vital signs: Vital Signs Temp 98.2 F 10/20/16 08:08 Pulse 87 10/20/16 08:08 Resp 16 10/20/16 08:08 BP 87/64 10/20/16 08:08 Pulse Ox 98 10/20/16 08:08 Intake & Output 10/19/16 10/20/16 10/20/16 18:59 06:59 18:59 Intake Total 387.537 240 474.875 Output Total 50 Balance 387.537 190 474.875 Weight 54.4 kg 54.4 kg Intake: IV 240 240 10 0.9 240 240 10 Intake, IV Titration 147.537 464.875 Amount Heparin Sodium,Porcine/ 147.537 464.875 D5w Pmx 25,000 unit In Dextrose/Water 1 500ml. bag @ 12 UNITS/KG/HR 13. 58 mls/hr IV .Q24H RIA Rx #:[id number] Output: Urine 50 Other: Voiding Method Toilet Toilet Toilet # Voids 1 2 1 - Exam In general patient is alert and oriented 3 in no apparent distress HEENT head normocephalic and atraumatic Neck is supple no JVD no goiter no lymphadenopathy Cardiac exam reveals regular heart sounds no gallops no murmurs Abdomen is soft nontender no organomegaly Extremity exam reveals no edema no cyanosis or clubbing there is a hematoma on the left thigh - Labs CBC & Chem 7: 10/20/16 05:00 10/20/16 05:00 Labs: Abnormal Lab Results - Last 24 Hours (Table) 10/20/16 10/20/16 Range/Units 05:00 05:00 PT 19.5 H (9.0-12.0) sec APTT 48.1 H (22.0-30.0) sec Chloride 110 H (98-107) mmol/L Assessment and Plan Plan: #[address] elevation myocardial infarction, status post cardiac catheterization with angioplasty and stent placement to the LAD, continue with dual antiplatelet therapy #2 ischemic cardiomyopathy with severely decreased ejection fraction, scheduled to have LifeVest placed prior to discharge to home #3 intramural thrombus, maintained on Coumadin INR therapeutic at 2 today #4 tobacco abuse counseled in length in regard to smoking cessation
[2016-10-20] MEDS: LISINOPRIL 10 MG TAB PO SCH (14:57)
--- NOTE | 2016-10-20 16:46 | PN ---
Koki is a 51-year-old female who suffered a large anterior wall myocardial infarction. Her left ventricular ejection fraction is severely reduced and appears to be out of proportion to the degree of anterior wall injury and infarction. She is, however, doing well now. She had a S3 gallop, which is now softened considerably in intensity. Her blood pressure has been low on medications. She has tolerated this very well and her blood pressure is 87/61 mmHg. She has no dizziness or lightheadedness. Respirations are normal and heart sounds are normal. She is afebrile. IMPRESSION: 1. Anterior wall myocardial infarction. 2. History of smoking. 3. S3 gallop consistent with incipient heart failure. 4. Asymptomatic left ventricle dysfunction. 5. Ischemic cardiomyopathy. 6. Left ventricle thrombus on IV heparin and Coumadin. SUGGEST: Continue current medical treatment with asa, atorvastatin, lisinopril, and long acting metoprolol and spironolactone. The INR is 2.0 and we are stopping heparin today and will give a single dose of Lovenox and continue with Coumadin 5 mg p.o. daily. I have also ordered a life vest on her and she will be discharged home after she gets a life vest.
[2016-10-20] MEDS ORDERED: WARFARIN 5 MG TAB PO SCH (18:00)
[2016-10-20] MEDS: ATORVASTATIN 80 MG TAB PO SCH (21:01)
[2016-10-21 06:55] LABS: Basophils # (A) 0.1 k/uL (0-0.2); Basophils % (A) 1 %; CH 31.3; CHCM 33.7; Eosinophils # (A) 0.3 k/uL (0-0.7); Eosinophils % (A) 4 %; HDW 2.54; HGB 12.1 gm/dL (11.4-16.0); Luc # (Auto) 0.15; Luc % (Auto) 2; Lymphocytes # (A) 1.3 k/uL (1.0-4.8); Lymphocytes % (A) 18 %; MCH 30.4 pg (25.0-35.0); MCHC 32.6 g/dL (31.0-37.0); MCV 93.3 fL (80.0-100.0); Mean Platelet Volume 7.5; Monocytes # (A) 0.6 k/uL (0-1.0); Monocytes % (A) 8 %; Neutrophils # (A) 4.8 k/uL (1.3-7.7); Neutrophils % (A) 67 %; RBC 3.97 m/uL (3.80-5.40); RDW 12.4 % (11.5-15.5); WBC 7.1 k/uL (3.8-10.6); WBC (Perox) 7.98
[2016-10-21 07:01] LABS: INR 3.5 (<1.1); Prothrombin Time 33.7 sec (9.0-12.0)
[2016-10-21 07:14] LABS: Anion Gap 9 mmol/L; Blood Urea Nitrogen 10 mg/dL (7-17); Calcium 9.1 mg/dL (8.4-10.2); Carbon Dioxide 26 mmol/L (22-30); Chloride 108 mmol/L (98-107); Glucose 89 mg/dL (74-99); Magnesium 1.9 mg/dL (1.6-2.3); Non-African American GFR(MDRD) >60 (>60 ml/min/1.73 sqM); Phosphorous 3.9 mg/dL (2.5-4.5); Potassium 4.7 mmol/L (3.5-5.1); Sodium 143 mmol/L (137-145)
[2016-10-21] MEDS: METOPROLOL SUCCINATE (ER) 25 MG TAB.ER.24H PO SCH (08:02)
[2016-10-21] MEDS: ASPIRIN 325 MG TAB PO SCH (08:03)
[2016-10-21] MEDS: PRASUGREL 10 MG TAB PO SCH (08:03)
[2016-10-21] MEDS: SPIRONOLACTONE 25 MG TAB PO SCH (10:26)
--- NOTE | 2016-10-21 11:11 | P.DS ---
Providers Date of admission: 10/16/16 09:12 Attending physician: Austin Barros Consults: 10/16/16 09:16 Consult Physician Stat Consulting Provider: Jad Colindres Consult Reason/Comments: ami Do you want consulting provider notified?: Yes 10/16/16 10:19 Consult Physician Routine Consulting Provider: [facility] Consult Reason/Comments: Post Interventional patient Do you want consulting provider notified?: Already Contacted Primary care physician: Sofia Melo Hospital Course: Patient is doing well. No dizziness no lightheadedness despite low blood pressure. She presented with an anterior wall myocardial infarction and underwent. A drug-eluting stent was placed in the proximal LAD. Subsequently the 2-D echo showed a left ventricular ejection fraction of 20-25%. She was experiencing chest discomfort at least a day prior to admission. A mural thrombus was also noted in the LV cavity She isn't very well subsequently. Despite her low blood pressure she remains pain-free has no dizziness no lightheadedness no undue shortness of breath. She does have an S4 upon standing but upon lying down she does not have an S4. For the first few days she did have an S3 gallop but she does not have an S3 gallop now Sounds are normal no rhonchi no crackles No edema No JVD Impression Anterior wall myocardial infarction, proximal LAD stenting with a drug-eluting stent Severe LV dysfunction ejection fraction 20-25%, somewhat out of proportion to the degree of the anterior wall infarct Delay presentation History of smoking LV thrombus Plan Warfarin for at least 6 months LifeVest 3-6 months Reassessment of LV function after 3 months Stop smoking Her medications include warfarin Aspirin 325 mg daily Effient or Plavix Lisinopril 10 mg daily Metoprolol succinate 25 mg daily Spironolactone 12.5 g by mouth daily Follow-up in the office in 2 weeks Patient Condition at Discharge: Stable Plan - Discharge Summary Discharge Medication List Ibuprofen/Pseudoephedrine HCl [Advil Cold & Sinus Caplet] 1 tab PO Q8H PRN 10/16 [History] Multivitamin/Iron/Folic Acid [Centrum Complete Multivit Tab] 1 each PO DAILY [History] Follow up Appointment(s)/Referral(s): Sofia Melo MD [Primary Care Provider] - 1-2 days
[2016-10-21 11:31] VITALS: BP 106/58; PULSE 88; RESP 18; TEMP 97.9
--- NOTE | 2016-10-21 15:09 | P.DS ---
Providers Date of admission: 10/16/16 09:12 Expected date of discharge: 10/21/16 Attending physician: Austin Barros Consults: 10/16/16 09:16 Consult Physician Stat Consulting Provider: Jad Colindres Consult Reason/Comments: ami Do you want consulting provider notified?: Yes 10/16/16 10:19 Consult Physician Routine Consulting Provider: [facility] Consult Reason/Comments: Post Interventional patient Do you want consulting provider notified?: Already Contacted Primary care physician: Sofia Melo Hospital Course: Discharge diagnosis #[address] elevation myocardial infarction, status post cardiac catheterization with angioplasty and stent placement to the LAD, continue with dual antiplatelet therapy #2 ischemic cardiomyopathy with severely decreased ejection fraction, patient has LifeVest #3 intramural thrombus, maintained on Coumadin INR therapeutic at 3.5 #4 tobacco abuse counseled in length in regard to smoking cessation Hospital course This is a 51-year-old female presented with chest pain. She is not have an acute ST elevation [place]. She is admitted to the ICU. She went for a heart catheterization had successful stenting to the LAD. Patient's echo showed evidence of an EF of 20%. Also had evidence of an intramural thrombus. Therefore patient was placed on Coumadin. She also had been on IV heparin until the Coumadin level is therapeutic. Cardiology did order LifeVest. This has been placed patient has been educated on on the usage of the LifeVest. They 've also added Effient, aspirin, metoprolol, lisinopril and Aldactone. Patient is chest pain-free. manager market is working on getting month supply free for the Effient. Effient is not covered for patient. She can then take Plavix. Cardiology has written prescription for all of these medications. Also for the Coumadin she is to hold Coumadin tonight and start Coumadin 5 mg daily tomorrow. Patient's symptoms have improved. Cardiology has cleared her for discharge. Cardiology is recommending LifeVest for 3-6 months and they will reevaluate her in the office in 2 weeks. Patient Condition at Discharge: Stable Plan - Discharge Summary Discharge Medication List Multivitamin/Iron/Folic Acid [Centrum Complete Multivit Tab] 1 each PO DAILY [History] Aspirin 325 mg PO DAILY tab 10/21/16 [Rx] Atorvastatin [Lipitor] 80 mg PO HS tab 10/21/16 [Rx] Lisinopril [Zestril] 10 mg PO DAILY@1400 tab 10/21/16 [Rx] Metoprolol Succinate (ER) [Toprol XL] 25 mg PO DAILY tab.er.24h 10/21/16 [Rx] Prasugrel [Effient] 10 mg PO DAILY tab 10/21/16 [Rx] Spironolactone [Aldactone] 12.5 mg PO DAILY@1100 tab 10/21/16 [Rx] Warfarin [Coumadin] 5 mg PO DAILY@1800 tab 10/21/16 [Rx] Follow up Appointment(s)/Referral(s): Sofia Melo MD [Primary Care Provider] - 1 Week Jad Colindres MD [STAFF PHYSICIAN] - 2 Weeks Activity/Diet/Wound Care/Special Instructions: Diet: cardiac Activity: as tolerated Discharge Disposition: HOME SELF-CARE
== END 2016-10-21 15:13 | disposition home or self-care (01) | DRG 247 ==
LOC: EC 08:43 → 6ICU 09:12 → 6SEL 10-20 13:43
PROVIDERS: ADMIT Internal Medicine; ATTEND Internal Medicine
PROC: B2111ZZ Fluoroscopy of Multiple Coronary Arteries using Low Osmolar Contrast (ICD-10-PCS; 2016-10-16)
PROC: B2151ZZ Fluoroscopy of Left Heart using Low Osmolar Contrast (ICD-10-PCS; 2016-10-16)
PROC: 027035Z Dilation of Coronary Artery, One Artery with Two Drug-eluting Intraluminal Devices, Percutaneous Approach (ICD-10-PCS; principal; 2016-10-16 08:52)
PROC: 4A023N7 Measurement of Cardiac Sampling and Pressure, Left Heart, Percutaneous Approach (ICD-10-PCS; 2016-10-16 08:52)
DX: I21.09 ST elevation (STEMI) myocardial infarction involving other coronary artery of anterior wall (principal); I50.20 Unspecified systolic (congestive) heart failure; I51.3 Intracardiac thrombosis, not elsewhere classified; D72.829 Elevated white blood cell count, unspecified; S70.12XA Contusion of left thigh, initial encounter; I45.10 Unspecified right bundle-branch block; I25.10 Atherosclerotic heart disease of native coronary artery without angina pectoris; R11.0 Nausea; R00.0 Tachycardia, unspecified; I25.5 Ischemic cardiomyopathy; F17.210 Nicotine dependence, cigarettes, uncomplicated; Z71.6 Tobacco abuse counseling; Z88.6 Allergy status to analgesic agent; Z91.010 Allergy to peanuts; Z91.018 Allergy to other foods
CPT/HCPCS: 36415; 71010; 80048; 80053; 80061; 82272; 82550; 82553; 83036; 83735; 84100; 84443; 84484; 85025; 85610; 85730; 93005; 93306; 93458; 96374; 96375; 99291

== ENCOUNTER 2017-01-23 12:20 | Day surgery (SDC) | payer OTHER ==
[2017-01-19 15:09] VITALS: BMI 25.4
[~2017-01-23 12:20] MED LIST: HYDROmorphone 1 MG/ML 1 ML SYRINGE IVP PRN; LIDOCAINE 1% 20 ML VIAL (10MG/ML) FOR IV START INTRADERMA PRN; ONDANSETRON 4 MG/2 ML VIAL IVP ONE; SODIUM CHLORIDE 0.9% 1,000 ML IV SCH
[2017-01-23] MEDS ORDERED: ceFAZolin 2 GM in SODIUM CHLORIDE 0.9% 100 ML IVPB ONE (13:30)
[2017-01-23] MEDS ORDERED: ceFAZolin 1,000 MG in SODIUM CHLORIDE 0.9% IRRIGATIO 250 ML IRRIGATION ONE (13:30)
[2017-01-23 13:33] LABS: INR 2.6 (<1.1); Prothrombin Time 24.7 sec (9.0-12.0)
[2017-01-23] MEDS ORDERED: MIDAZOLAM 2 MG/2 ML VIAL ONE (14:27)
[2017-01-23] MEDS ORDERED: LIDOCAINE 1% INJ 10MG/ML (20 ML MDV) ONE (14:27)
[2017-01-23] MEDS ORDERED: fentaNYL (PF) 50 MCG/ML 2 ML AMP ONE (14:27)
[2017-01-23] MEDS ORDERED: PROPOFOL 10 MG/ML 20 ML VIAL IV ONE (14:27)
[2017-01-23] MEDS ORDERED: IOHEXOL 350 MG/ML 50ML BOTTLE INJ ONE (14:38)
[2017-01-23] MEDS ORDERED: SODIUM CHLORIDE 0.9% 1,000 ML IV ONE (14:38)
[2017-01-23] MEDS ORDERED: LIDOCAINE 1% INJ 10MG/ML (20 ML MDV) SQ ONE (15:04)
[2017-01-23] MEDS ORDERED: ACETAMINOPHEN IV (For NPO) 1,000 MG in EMPTY BAG 1 BAG IVPB ONE (16:33)
[2017-01-23] MEDS ORDERED: HYDROcodone/APAP 5-325MG 1 EACH TAB PO PRN (16:33)
[2017-01-23] MEDS ORDERED: ACETAMINOPHEN TAB 325 MG TAB PO PRN ×2 (16:33→16:34)
--- NOTE | 2017-01-23 17:05 | PCN ---
DATE OF PROCEDURE: Koki Wilde is a 51-year-old female who has ischemic cardiomyopathy, status post anterior wall CT with a large anteroapical akinesis mural thrombus which has resolved on anticoagulation. Left ventricular ejection fraction is severely reduced, 20% to 25%, despite percutaneous revascularization as well as appropriate medical treatment. She has class II heart failure symptoms, underlying right bundle branch block. A single-chamber ICD was recommended for chronic systolic dysfunction, ischemic cardiomyopathy of chronic nature despite 3 months of medical treatment after percutaneous revascularization. Patient was brought to the EP lab in a fasting state. Written informed consent was obtained prior to the procedure. The left shoulder area was prepped and draped as per protocol. Lidocaine 1% was used for local anesthesia. A 4 cm incision was made parallel to the deltopectoral groove about 1.5 cm medial to it. The incision was carried down to the level of the pectoralis muscle. A subfascial pocket was made. Hemostasis was assured. The left axillary vein was accessed at a single point under fluoroscopy, and via appropriate-sized introducer sheaths, a single-coil DF4 ICD lead was positioned in the RV apex. The R waves were 8.5 mV, pacing impedance 950 ohms, pacing threshold 0.75 v at 0.5 ms. Ten-volt test was negative. The lead was secured to the underlying pectoralis fascia using 2 non-absorbable sutures. Pocket was irrigated with antibiotic solution. The lead was connected to the generator ([employer] model #[id number], serial #[id number]). Lead and the generator were then placed in the subfascial pocket. The wound was closed in 3 layers and dressed per protocol. DFT TESTING UNDER ANESTHESIA: A DC fib ( ) shock was used to induce ventricular fibrillation. This was appropriately detected at least sensitivity without any dropouts and successfully internally defibrillated with a 10-joule shock in anodal vector, high voltage impedance 64 ohms, charge time 1.8 seconds. No post-shock noise. Device was then programmed to immediate RIT programming with appropriate anti-tachycardia pacing, cardioversion and defibrillation. RESULT: 1. Successful single-chamber ICD for primary prevention of sudden cardiac with chronic systolic ischemic cardiomyopathy with class II heart failure, right bundle branch block, post myocardial infarction greater than 3 months with percutaneous revascularization, on medical treatment. 2. DFT at or below 10 joules.
--- NOTE | 2017-01-23 17:07 | LTR ---
January 23, 2017 RE: Koki Wilde Dear Sofia, I had the pleasure of seeing Koki Wilde in electrophysiology followup. As you know, Koki's LV dysfunction has not improved despite percutaneous revascularization as well as medical treatment. I implanted a single-chamber ICD today successfully. She will be monitored overnight on telemetry and will be discharged home tomorrow after completion of IV antibiotics and a chest x-ray and device interrogation. Thank you for entrusting me with the care of your patient. Warm regards. Sincerely, JHONNY LORA MD
[2017-01-23] MEDS: LACTATED RINGERS 1,000 ML IV SCH (17:56)
[2017-01-23] MEDS: ceFAZolin 2 GM in SODIUM CHLORIDE 0.9% 100 ML IVPB SCH (20:01)
[2017-01-23] MEDS ORDERED: ATORVASTATIN 80 MG TAB PO SCH (21:00)
[2017-01-24] MEDS: ceFAZolin 2 GM in SODIUM CHLORIDE 0.9% 100 ML IVPB SCH ×3 (01:52→13:49)
[2017-01-24 06:20] LABS: INR 2.3 (<1.1); Prothrombin Time 22.2 sec (9.0-12.0)
[2017-01-24] MEDS: LACTATED RINGERS 1,000 ML IV SCH (06:27)
--- NOTE | 2017-01-24 07:45 | XR ---
EXAMINATION TYPE: XR chest 2V DATE OF EXAM: 01/24/2017 6:18 AM COMPARISON: Chest x-ray October 16, 2016. HISTORY: Arrhythmia status post pacemaker placement. TECHNIQUE: Frontal and lateral views of the chest are obtained. FINDINGS: There is chronic parenchymal change without suspicious new focal air space opacity, pleura l effusion, or pneumothorax seen. The cardiac silhouette size is stable and upper limits of normal. There is new single lead pacemaker/AICD with lead terminating in right ventricle The osseous structu res are intact. IMPRESSION: New single lead pacemaker/AICD terminating in right ventricle. No evidence of complicati on related to defibrillator placement.
[2017-01-24] MEDS ORDERED: MULTIVITAMINS, THERA 1 EACH TAB PO SCH (09:00)
[2017-01-24] MEDS ORDERED: PRASUGREL 10 MG TAB PO SCH (09:00)
[2017-01-24] MEDS ORDERED: METOPROLOL SUCCINATE (ER) 25 MG TAB.ER.24H PO SCH (09:00)
[2017-01-24] MEDS ORDERED: ASPIRIN 81 MG CHEW PO SCH (09:00)
[2017-01-24] MEDS ORDERED: SPIRONOLACTONE 25 MG TAB PO SCH (11:00)
[2017-01-24 12:08] VITALS: BP 90/54; PULSE 81; RESP 14; TEMP 98.9
[2017-01-24] MEDS ORDERED: LISINOPRIL 10 MG TAB PO SCH (14:00)
--- NOTE | 2017-01-24 17:46 | P.DS ---
Providers Attending physician: Jad Colindres Primary care physician: Sofia Melo Pertinent Studies: Patient is doing well. She has a mild swelling over the ICD site no chest discomfort no dizziness no lightheadedness no chest discomfort Afebrile 98.9F, normal respirations, blood pressure 92/62 mmHg which is at her baseline Heart sounds are normal normal S1 normal S2 no murmurs no gallops Breath sounds are normal no rhonchi no crackles Extremities are warm no edema Impression Severe ischemic cardio myopathy of chronic nature without improvement with medical treatment and percutaneous revascularization Class II CHF CAD, anterior apical TX, old Single-chamber ICD for primary prevention of SCD Plan Discharge home today after device interrogation, completion of IV antibiotics Pressure dressing applied Coumadin 5 mg daily for 5 days and then resume regular dose No other changes in medications Device clinic follow-up in 5 days Patient Condition at Discharge: Stable Plan - Discharge Summary Discharge Medication List Multivitamin/Iron/Folic Acid [Centrum Complete Multivit Tab] 1 each PO DAILY [History] Atorvastatin [Lipitor] 80 mg PO HS tab 10/21/16 [Rx] Lisinopril [Zestril] 10 mg PO DAILY@1400 tab 10/21/16 [Rx] Metoprolol Succinate (ER) [Toprol XL] 25 mg PO DAILY tab.er.24h 10/21/16 [Rx] Prasugrel [Effient] 10 mg PO DAILY tab 10/21/16 [Rx] Spironolactone [Aldactone] 12.5 mg PO DAILY@1100 tab 10/21/16 [Rx] Warfarin [Coumadin] 5 mg PO DAILY@1800 tab 10/21/16 [Rx] Aspirin [Adult Low Dose Aspirin EC] 162 mg PO DAILY 01/19/17 [History] Medroxyprogesterone Acetate [Depo-Provera] 150 mg IM ONCE 01/19/17 [History] Follow up Appointment(s)/Referral(s): Jad Colindres MD [STAFF PHYSICIAN] - 02/01/17 4:00 pm Patient Instructions/Handouts: Implantable Cardioverter Defibrillator (GEN) Activity/Diet/Wound Care/Special Instructions: Restart Coumadin 5mg tomorrow (01/25) Keep dressing clean and dry. Do not remove dressing. You may shower and cover dressing with saran or cling wrap. No baths. Do not raise your left arm above heart level. No back scratching, reaching up, pulling cords, golfing, swinging an axe, or lifting greater than 5lbs. You may use your right arm freely. You may perform pendulum exercises to prevent frozen shoulder. Contact [facility] if you notice any bleeding, excess swelling, increased pain, drainage of cloudy fluid, or fevers. . Follow up in the office for a device check as scheduled. Discharge Disposition: HOME SELF-CARE
[2017-01-24] MEDS ORDERED: WARFARIN 5 MG TAB PO SCH (18:00)
== END 2017-01-24 15:45 | disposition home or self-care (01) ==
LOC: CATHEP 12:20 → 3OBS 16:10 → CATHEP 01-24 15:45
PROVIDERS: ATTEND Internal Medicine Clinical Cardiac Electrophysiology
DX: I25.5 Ischemic cardiomyopathy (principal); I25.10 Atherosclerotic heart disease of native coronary artery without angina pectoris; I11.0 Hypertensive heart disease with heart failure; I50.22 Chronic systolic (congestive) heart failure; I45.10 Unspecified right bundle-branch block; Z00.6 Encounter for examination for normal comparison and control in clinical research program; R94.31 Abnormal electrocardiogram [ECG] [EKG]; Z86.718 Personal history of other venous thrombosis and embolism; I25.2 Old myocardial infarction; Z98.61 Coronary angioplasty status; Z79.01 Long term (current) use of anticoagulants; Z79.82 Long term (current) use of aspirin; Z79.899 Other long term (current) drug therapy; Z88.8 Allergy status to other drugs, medicaments and biological substances; Z87.891 Personal history of nicotine dependence
CPT/HCPCS: 93641; 33249; 85610 ×2; 81025; 71020; C1892; C1769 ×2; C1777; C1722; J2250; J0690 ×2; J2001; J3010; J2704; Q9967

== ENCOUNTER → 2017-10-03 | Outpatient (CLI) | payer MEDICAID ==
--- NOTE | 2017-10-03 10:20 | US ---
EXAMINATION TYPE: US venous doppler duplex UE LT DATE OF EXAM: 10/03/2017 COMPARISON: NONE CLINICAL HISTORY: LT ARM SWELLING R22.32. Left arm swelling x 1 day, patient on blood thinners SIDE PERFORMED: Left Left Arm: Appears negative for DVT IMPRESSION: 1. No diagnostic evidence of DVT..
== END ==
LOC: RADUSWWP 09:16
PROVIDERS: ATTEND Family Medicine
DX: R22.32 Localized swelling, mass and lump, left upper limb (principal)

== ENCOUNTER → 2018-08-24 | Outpatient (CLI) | payer MEDICAID ==
--- NOTE | 2018-08-24 18:34 | ECHOF ---
Referral Reason:I51.9 heart ds, I42.9 [id number] MEASUREMENTS -------- HEIGHT: 152.4 cm WEIGHT: 64.4 kg BP: 127/59 RVIDd: 2.4 cm (< 3.3) IVSd: 1.0 cm (0.6 - 1.1) LVIDd: 5.0 cm (3.9 - 5.3) LVPWd: 1.2 cm (0.6 - 1.1) IVSs: 1.0 cm LVIDs: 4.1 cm LVPWs: 1.6 cm LA Diam: 2.8 cm (2.7 - 3.8) LAESV Index (A-L): 20.62 ml/m Ao Diam: 2.9 cm (2.0 - 3.7) AV Cusp: 1.8 cm (1.5 - 2.6) MV EXCURSION: 12.755 mm (> 18.000) MV EF SLOPE: 93 mm/s (70 - 150) EPSS: 1.3 cm RAP: 5.00 mmHg RVSP: 27.00 mmHg FINDINGS -------- Sinus rhythm. This was a technically difficult study with suboptimal views. The left ventricular size is normal. There is borderline concentric left ventricular hypertrophy. Overall left ventricular systolic function is moderate-severely impaired with, an EF between 30 - 35 %. Mid anterior LV wall motion is akinetic. Mid anteroseptal LV wall motion is akinetic. Api elena anterior LV wall motion is akinetic. Apical lateral LV wall motion is akinetic. Apical infe rior LV wall motion is akinetic. Apical septum LV wall motion is akinetic. The right ventricle is normal in size. Normal LA size by volume 22+/-6 ml/m2. The right atrium is normal in size. 3 ml of Lumason was utilized for enhancement of images. The aortic valve is trileaflet, and appears structurally normal. No aortic stenosis or regurgitation. The mitral valve is normal. Mild mitral regurgitation is present. Mild tricuspid regurgitation present. Right ventricular systolic pressure is normal at < 35 mmHg. The right ventricular systolic pressure, as measured by Doppler, is 27.00mmHg. Trace/mild (physiologic) pulmonic regurgitation. Thromus in apex The aortic root size is normal. Normal inferior vena cava with normal inspiratory collapse consistent with estimated right atrial pre ssure of 5 mmHg. There is no pericardial effusion. CONCLUSIONS -------- 1. Sinus rhythm. 2. This was a technically difficult study with suboptimal views. 3. The left ventricular size is normal. 4. There is borderline concentric left ventricular hypertrophy. 5. Mid anterior LV wall motion is akinetic. 6. Mid anteroseptal LV wall motion is akinetic. 7. Apical anterior LV wall motion is akinetic. 8. Apical lateral LV wall motion is akinetic. 9. Apical inferior LV wall motion is akinetic. 10. Apical septum LV wall motion is akinetic. 11. Normal LA size by volume 22+/-6 ml/m2. 12. 3 ml of Lumason was utilized for enhancement of images. 13. The aortic valve is trileaflet, and appears structurally normal. No aortic stenosis or regurgitat ion. 14. The mitral valve is normal. 15. Mild mitral regurgitation is present. 16. Mild tricuspid regurgitation present. 17. Right ventricular systolic pressure is normal at < 35 mmHg. 18. Trace/mild (physiologic) pulmonic regurgitation. 19. Thromus in apex 20. The aortic root size is normal. 21. Normal inferior vena cava with normal inspiratory collapse consistent with estimated right atrial pressure of 5 mmHg. 22. There is no pericardial effusion. SENIOR APPLICATIONS DEVELOPER: Alicia Glaser RDCS
== END | disposition home or self-care (01) ==
LOC: RADECHMAIN 15:52
PROVIDERS: ATTEND Family Medicine
DX: I08.1 Rheumatic disorders of both mitral and tricuspid valves (principal); I42.9 Cardiomyopathy, unspecified
CPT/HCPCS: 93306; Q9950

== ENCOUNTER → 2018-11-28 | Outpatient (CLI) | payer MEDICAID ==
--- NOTE | 2018-11-28 15:36 | XR ---
EXAMINATION TYPE: XR cervical spine comp DATE OF EXAM: 11/28/2018 TECHNIQUE: Frontal, lateral, oblique, and open mouth view of the cervical spine are obtained. HISTORY: M54.2 cervicalgia volleyball injury 20 years ago COMPARISON: None FINDINGS: The cervical spine is visualized in its entirety from C1 thru the top of T1 level, it is s atisfactory in alignment without evidence of acute fracture or dislocation. The pre-vertebral soft t issue appears within normal limits. Vertebral body heights are maintained. There is mild to borderli ne moderate multilevel disc space narrowing with relative sparing of C7-T1 level. The C1-C2 articulat ion is within normal limits on the open mouth view. Oblique images are felt within normal limits. The re is partial visualization of pacemaker device in the overlying soft tissue. IMPRESSION: As above.
--- NOTE | 2018-11-28 15:38 | XR ---
EXAMINATION TYPE: XR lumbosacral spine min 4V DATE OF EXAM: 11/28/2018 CLINICAL HISTORY: Low back pain after volleyball injury 20 years ago. TECHNIQUE: Frontal, lateral, and oblique images of the lumbar spine are obtained. COMPARISON: None FINDINGS: There are 5 lumbar type vertebral bodies identified. The lumbar spine shows satisfactory alignment without evidence of acute fracture or dislocation. Vertebral body heights appear within nor mal limits. There is mild to moderate multilevel disc space narrowing with relative sparing of L4-L5 level. There is mild multilevel anterior and lateral spurring in the upper to mid lumbar spine . The oblique images appear within normal limits. Multilevel facet arthropathy lower lumbar spine is noted. Vascular calcification of overlying soft tissue is seen. IMPRESSION: As above.
== END | disposition home or self-care (01) ==
LOC: RADXRMAIN 14:39
PROVIDERS: ATTEND Family Medicine
DX: M48.03 Spinal stenosis, cervicothoracic region (principal); M48.061 Spinal stenosis, lumbar region without neurogenic claudication; M46.96 Unspecified inflammatory spondylopathy, lumbar region
CPT/HCPCS: 72050; 72110

== ENCOUNTER 2020-06-05 06:02 | Day surgery (SDC) | payer MEDICAID ==
[2020-05-28 16:10] VITALS: BMI 27.7
[~2020-06-05 06:02] MED LIST changes: -HYDROmorphone 1 MG/ML 1 ML SYRINGE IVP PRN; +LACTATED RINGERS 1,000 ML IV SCH; -LIDOCAINE 1% 20 ML VIAL (10MG/ML) FOR IV START INTRADERMA PRN; -ONDANSETRON 4 MG/2 ML VIAL IVP ONE
[2020-06-05 06:36] VITALS: RESP 16; TEMP 98.1
[2020-06-05] MEDS ORDERED: SODIUM CHLORIDE 0.9% 1,000 ML IV ONE (06:42)
[2020-06-05] MEDS ORDERED: PROPOFOL 10 MG/ML 20 ML VIAL IV ONE (07:12)
--- NOTE | 2020-06-05 08:42 | PCN ---
PROCEDURE NOTE Glory Wilde is a 54-year-old female with known ischemic cardiomyopathy, single-chamber ICD. She was brought in with heart failure. She is brought in for DFT testing under anesthesia. She has a [employer] ellipse VR 1411-36 Q ICD. This was interrogated. The battery life is greater than 6 years at this time. Ventricular pacing threshold 0.75 V at 0.5 milliseconds. R-waves greater than 12 mV and pacing impedance 450 ohms. High-voltage impedance 77 ohms. DC Fibber shock was used to induce ventricular fibrillation. This was adequately and appropriately detected at least sensitivity. A 10 joule shock defibrillated the patient with a type 2 conversion. The HV lead impedance 79 Ohms/last charge time was 4.1 seconds. After waiting for 2-3 minutes, this was repeated in total polarity. Ventricular fibrillation was adequately and appropriately detected. A 10 joule shock in the cathode polarity failed and a 20 joule shock successfully defibrillated the patient. The device was then programmed back to the anodal polarity. First cardioversion at 20 joules, 1st defibrillation 30 joules, appropriate antitachycardia pacing, cardioversion, defibrillations according to the programming. Patient tolerated the procedure well without any acute complications. PLAN: Maximize heart failure medications. Follow up in the device clinic in 4 months and follow up with Dr. Colindres in 4 months. MMODL / IJN: [id number] /
[2020-06-05 08:56] VITALS: BP 103/57; PULSE 60
== END 2020-06-05 08:57 | disposition home or self-care (01) ==
LOC: CATHEP 06:02
PROVIDERS: ATTEND Internal Medicine Clinical Cardiac Electrophysiology
DX: Z45.02 Encounter for adjustment and management of automatic implantable cardiac defibrillator (principal); I25.5 Ischemic cardiomyopathy; I50.22 Chronic systolic (congestive) heart failure; G72.0 Drug-induced myopathy; T46.6X5A Adverse effect of antihyperlipidemic and antiarteriosclerotic drugs, initial encounter; Z72.0 Tobacco use; I25.2 Old myocardial infarction; I25.10 Atherosclerotic heart disease of native coronary artery without angina pectoris; I23.6 Thrombosis of atrium, auricular appendage, and ventricle as current complications following acute myocardial infarction; Z79.82 Long term (current) use of aspirin; Z79.899 Other long term (current) drug therapy; Z88.6 Allergy status to analgesic agent
CPT/HCPCS: 93642; 84132; J2704

== ENCOUNTER → 2020-07-21 | Outpatient (CLI) | payer MEDICAID | END | disposition home or self-care (01) | LOC: LABWHC1 12:55 | PROVIDERS: ATTEND Family Medicine | DX: Z20.828 Contact with and (suspected) exposure to other viral communicable diseases (principal) | CPT/HCPCS: U0003; C9803 ==

== ENCOUNTER → 2021-06-04 | Outpatient (CLI) | payer OTHER ==
--- NOTE | 2021-06-04 15:08 | XR ---
EXAMINATION TYPE: XR foot complete LT DATE OF EXAM: 06/04/2021 CLINICAL HISTORY: pain TECHNIQUE: Frontal, lateral and oblique images of the left foot are obtained. COMPARISON: None. FINDINGS: There is no acute fracture/dislocation evident. The joint spaces appear within normal bernstein its. The overlying soft tissue appears unremarkable. IMPRESSION: There is no acute fracture or dislocation. ICD 10 NO FRACTURE, INITIAL EVALUATION
== END | disposition home or self-care (01) ==
LOC: RADXRMAIN 14:43
PROVIDERS: ATTEND Family Medicine
DX: M79.672 Pain in left foot (principal)

== ENCOUNTER → 2024-10-04 | Outpatient (CLI) | payer OTHER ==
--- NOTE | 2024-10-04 13:27 | XR ---
EXAMINATION TYPE: XR shoulder complete RT DATE OF EXAM: 10/04/2024 1:19 PM COMPARISON: None. CLINICAL INDICATION: Female, 59 years old with history of M25.511 Rt Shoulder pain, pain TECHNIQUE: Three views of the right shoulder are obtained. FINDINGS: There is no acute fracture/dislocation evident in the right shoulder. [id number] na rrowing at the acromioclavicular joint. Glenohumeral joint is preserved. The visualized ribs are inta ct and unremarkable. IMPRESSION: As above. [facility], , 10/04/2024 1:24 PM
== END | disposition home or self-care (01) ==
LOC: RADXRMAIN 13:04
PROVIDERS: ATTEND Family Medicine
DX: M25.511 Pain in right shoulder (principal)